=== PATIENT | male | born 1965 | race Caucasian/White ===

== ENCOUNTER 2017-04-12 08:04 | Observation (INO) | payer OTHER ==
[~2017-04-12] VITALS: Ht 180.3 cm; Wt 115.7 kg
[~2017-04-12 08:04] MED LIST: AMOXICILLIN500 MG PO; ATENOLOL50 MG PO; ATORVASTATI80 MG/TAB PO; BENAZEPRIL20 M1 PO; FISH OIL1 CAP PO; FISH OIL1360 MG PO; LIPITOR20 MG PO; LIPITOR40 MG PO; METAMUCIL28 % PO; MULTI VITAMIN MENS PO; MULTIVITAMIN ME1 TAB PO; PRAVACHOL40 MG PO; PRAVASTATIN40 MG PO; PRILOSEC20 MG/CAP PO; SAW PALMETT4 PO; SAW PALMETTO1 CAP; TRANSDERM-SCOP1.5 MG TD; ZANTAC25 MG/M1 PO; [UNRECOGNIZED DRUG - REMARK]
[2017-04-12] MEDS ORDERED: LOPRESSOR 550 MG/TAB PO (08:20)
[2017-04-12 08:32] LABS: HEMATOCRIT 43.5 % (39.0-50.0); HEMOGLOBIN 14.9 g/dl (14.0-18.0); IMMATURE GRANULOCYTES 0.2 % (0.0-1.0); MEAN CELL VOLUME 92.8 fL CALC (80.0-100.0); MEAN CORPUSCULAR HGB 31.8 pG CALC (26.0-32.0); MEAN CORPUSCULAR HGB CONC 34.3 g/L CALC (32.0-36.0); NEUT# 6.6 thou/uL (1.82-7.42); RED BLOOD COUNT 4.69 mill/uL (4.70-6.10); RED CELL DISTRI WIDTH 12.9 % (11.5-15.5)
[2017-04-12 08:48] LABS: ALBUMIN 4.7 g/dL (3.2-5.0); ALKALINE PHOSPHATASE 62 u/l (38-126); ANION GAP 15 (6-22 (CALC)); BUN 15 mg/dL (9-20); BUN/CREATININE RATIO 14 (12-20 (CALC)); CALCIUM 9.6 mg/dL (8.4-10.2); CARBON DIOXIDE 27 mmol/l (22-30); CHLORIDE 103 mmol/l (95-108); GFR > 60 ML/MIN (>=60 (CALC)); GFR FOR AFR.AMER. > 60 ML/MIN (>=60 (CALC)); GLUCOSE 102 mg/dL (75-110); POTASSIUM 4.1 mmol/l (3.5-5.1); SGOT/AST 22 u/l (17-59); SGPT/ALT 41 u/l (21-72); SODIUM 141 mmol/l (137-146); TOTAL PROTEIN 7.6 g/dL (6.3-8.2)
[2017-04-12 09:00] LABS: MYOGLOBIN 54 ng/mL (0 - 121)
[2017-04-12 10:10] VITALS: BP 145/94
[2017-04-12 10:48] VITALS: BP 128/75
[2017-04-12 12:02] LABS: CHOLESTEROL HDL RATIO 3.9 (<4.4 (CALC))
[2017-04-12 14:30] VITALS: BP 157/97
[2017-04-12 16:00] VITALS: BP 125/84
[2017-04-12 19:00] VITALS: BP 147/92
[2017-04-12 22:00] VITALS: BP 146/88
[2017-04-13 05:28] VITALS: BP 153/94
[2017-04-13 05:52] LABS: HEMATOCRIT 43.7 % (39.0-50.0); HEMOGLOBIN 15.1 g/dl (14.0-18.0); MEAN CELL VOLUME 92.2 fL CALC (80.0-100.0); MEAN CORPUSCULAR HGB 31.9 pG CALC (26.0-32.0); MEAN CORPUSCULAR HGB CONC 34.6 g/L CALC (32.0-36.0); RED BLOOD COUNT 4.74 mill/uL (4.70-6.10); RED CELL DISTRI WIDTH 12.7 % (11.5-15.5)
[2017-04-13 07:29] VITALS: BP 135/84
== END 2017-04-13 10:33 | disposition home or self-care (01) | DRG 313 ==
LOC: ED 08:04 → ED-I 09:20 → ED 09:36 → MS2 09:37
PROVIDERS: Emergency Medicine; Nurse Practitioner Family; ADMIT Internal Medicine; ATTEND Internal Medicine
DX: R07.89 Other chest pain (principal); I10 Essential (primary) hypertension; E78.5 Hyperlipidemia, unspecified; D47.3 Essential (hemorrhagic) thrombocythemia; G47.33 Obstructive sleep apnea (adult) (pediatric); F12.90 Cannabis use, unspecified, uncomplicated; Z90.81 Acquired absence of spleen; Z87.891 Personal history of nicotine dependence
CPT/HCPCS: G0378

== ENCOUNTER 2017-11-04 08:21 | Day surgery (SDC) | payer OTHER ==
[~2017-11-04] VITALS: Ht 180.3 cm; Wt 113.4 kg
[~2017-11-04 08:21] MED LIST changes: +DIATOMACEOUS EARTH PO; +LOPRESSOR 550 MG/TAB PO; +SAW PALMETT3 PO; +TURMERIC CURCU500 MG PO; +[UNRECOGNIZED DRUG - OTHER] IJ; -[UNRECOGNIZED DRUG - REMARK]
[2017-11-04 10:46] VITALS: BP 126/82
== END 2017-11-04 11:00 | disposition home or self-care (01) | DRG 392 ==
LOC: ENDO 08:21 → ORM 09:15 → ENDO 11:00 → ORM 13:45
PROVIDERS: ATTEND Internal Medicine Gastroenterology
PROC: 0DB48ZX Excision of Esophagogastric Junction, Via Natural or Artificial Opening Endoscopic, Diagnostic (ICD-10-PCS; principal; 2017-11-04)
PROC: 0DB68ZX Excision of Stomach, Via Natural or Artificial Opening Endoscopic, Diagnostic (ICD-10-PCS; 2017-11-04)
PROC: 0DB68ZX Excision of Stomach, Via Natural or Artificial Opening Endoscopic, Diagnostic (ICD-10-PCS; 2017-11-04)
DX: K21.0 Gastro-esophageal reflux disease with esophagitis (principal); E78.00 Pure hypercholesterolemia, unspecified; K25.9 Gastric ulcer, unspecified as acute or chronic, without hemorrhage or perforation; K29.50 Unspecified chronic gastritis without bleeding; K22.70 Barrett's esophagus without dysplasia; K64.8 Other hemorrhoids; I10 Essential (primary) hypertension; Z86.010 Personal history of colon polyps; Z80.0 Family history of malignant neoplasm of digestive organs